=== PATIENT | male | born 1965 | race Caucasian/White ===

== ENCOUNTER 2018-12-19 02:04 | Emergency (ER) | payer BC, OTHER ==
[~2018-12-19] VITALS: Ht 167.6 cm; Wt 54.9 kg
[~2018-12-19 02:04] MED LIST: HYDR-3974 GT
[2018-12-19 03:35] VITALS: BP 139/74
[2018-12-19] MEDS ORDERED: KETOROLAC TROMETHAMINE INJ 60 MG/2 ML VIAL IM ONE ×2 (03:59→04:00)
[2018-12-19] MEDS ORDERED: DEXAMETHASONE SOD PHOSPHATE 10 MG/ML VIAL ONE (03:59)
[2018-12-19] MEDS ORDERED: DEXAMETHASONE SOD PHOSPHATE 4 MG/ML VIAL IM ONE (04:00)
== END 2018-12-19 04:11 | disposition home or self-care (01) ==
LOC: ER 02:04
DX: M54.42 Lumbago with sciatica, left side (principal); F17.200 Nicotine dependence, unspecified, uncomplicated
CPT/HCPCS: J1100; J1885

== ENCOUNTER 2021-07-07 14:07 | Emergency (ER) | payer OTHER ==
[~2021-07-07] VITALS: Ht 167.6 cm; Wt 57.6 kg
[2021-07-07 14:16] VITALS: BP 146/81
--- NOTE | 2021-07-07 14:20 | NUR ---
BIBSELF FOR SELF INFLICTED MULTIPLE LAC ON THE NECK, WRISTS & ABDOMEN WITH A "SPEAR". THE PATIENT IS ALERT AND ORIENTED X3. IN ROOM AIR AND DENIES SOB. RESPIRATION REGULAR AND UNLABORED. ATTACHED TO THE MONITOR. SAFETY CHECK DONE, SAFETY MEASURES TAKEN. SITTER AT THE BEDSIDE. WILL CONTINUE TO MONITOR THE PATIENT.
--- NOTE | 2021-07-07 14:23 | NUR ---
CALLED [facility] FOR TRAUMA TRANSFER RETRIAGE. WAITING FOR CALL BACK FROM PRISCILLA CHARGE NURSE FOR TRAUMA DR. MONROY
--- NOTE | 2021-07-07 14:25 | NUR ---
RECEIVED A CALL FROM PRISCILLA CHARGE NURSE AT [facility] EMERGENC[facility] ROOM. DR. NAIDU IS ACCEPTING TRAUMA SURGEON.
[2021-07-07] MEDS ORDERED: TDAP [DIPH/PERTUSSIS/TET] 0.5 ML VIAL IM ONE (14:30)
[2021-07-07] MEDS ORDERED: CEFAZOLIN 1 GM in IV D5W 50 ML IV ONE (14:30)
--- NOTE | 2021-07-07 14:30 | NUR ---
CALLED FOR RETRIAGE TO [facility].
--- NOTE | 2021-07-07 14:35 | NUR ---
THE PATIENT GOT PICKED UP VIA 911 AND FOR THAT REASON THE PATIENT DID NOT GET ORDERED ANCEF AND TDAP. 911 CECILIA MADE AWAR.
== END 2021-07-07 14:30 ==
LOC: ER 14:08
DX: S11.81XA Laceration without foreign body of other specified part of neck, initial encounter (principal); S61.512A Laceration without foreign body of left wrist, initial encounter; S31.135A Puncture wound of abdominal wall without foreign body, periumbilic region without penetration into peritoneal cavity, initial encounter; F17.200 Nicotine dependence, unspecified, uncomplicated; F32.9 Major depressive disorder, single episode, unspecified; X78.8XXA Intentional self-harm by other sharp object, initial encounter; Y93.89 Activity, other specified; Y92.89 Other specified places as the place of occurrence of the external cause; Y99.8 Other external cause status
CPT/HCPCS: 71045-TC; J0690; J7060

== ENCOUNTER 2023-02-25 16:36 | Emergency (ER) | payer OTHER ==
[~2023-02-25] VITALS: Ht 167.6 cm; Wt 53.1 kg
--- NOTE | 2023-02-25 16:36 | NUR ---
BIBRA FOR WEAKNESS AND N/V FOR THE PAST FEW HOURS. A/O X 3, ABLE TO MAKE NEEDS KNOWN, TOLERATING WELL ON ROOM AIR.
--- NOTE | 2023-02-25 17:15 | NUR ---
BLOOD SAMPLES OBTAINED
[2023-02-25] MEDS ORDERED: IV NS 0.9% 1,000 ML BAG IV ONE (17:30)
[2023-02-25 17:52] LABS: BASOPHILS # (AUTO) 0.1 K/uL (0.0-0.2); BASOPHILS % (AUTO) 0.8 % (0.0-2.0); EOSINOPHILS % (AUTO) 0.9 % (0.0-6.0); HEMATOCRIT 39 % (39-51); HEMOGLOBIN 12.4 g/dL (13.5-17.5); LYMPHOCYTES # (AUTO) 0.7 K/uL (0.8-4.8); LYMPHOCYTES % (AUTO) 10.9 % (20.0-44.0); MEAN CORPUSCULAR HGB CONC 32 g/dl (31.0-36.0); MEAN CORPUSCULAR VOLUME 73 fL (80-96); MONOCYTES # (AUTO) 0.3 K/uL (0.1-1.30); MONOCYTES % (AUTO) 4.6 % (2.0-12.0); NEUTROPHILS # (AUTO) 5.4 K/uL (1.8-8.9); NEUTROPHILS % (AUTO) 82.8 % (43.0-81.0); PLATELET COUNT (AUTO) 326 K/uL (150-450); RED BLOOD CELL COUNT(AUTO) 5.31 MIL/uL (4.5-6.0); WHITE BLOOD COUNT (AUTO) 6.5 K/uL (4.3-11.0)
[2023-02-25 17:58] LABS: CALCIUM, SERUM 8.7 mg/dL (8.5-10.1); CARBON DIOXIDE 26 mmol/L (21-32); CHLORIDE 99 mmol/L (98-107); CREATININE 0.7 mg/dL (0.6-1.3); GLUCOSE 142 mg/dL (74-106); POTASSIUM 4.1 mmol/L (3.5-5.1); SODIUM SERUM 140 mmol/L (136-145); UREA NITROGEN, BLOOD 14 mg/dL (7-18)
[2023-02-25 18:05] LABS: ALANINE AMINOTRANSFERASE 82 U/L (12-78); ALBUMIN 3.8 g/dL (3.4-5.0); ALCOHOL, BLOOD 196 mg/dL (0-0); ALKALINE PHOSPHATASE 94 U/L (46-116); ASPARTATE AMINOTRANSFERASE 72 U/L (15-37); BILIRUBIN,DIRECT 0.2 mg/dL (0.0-0.2); BILIRUBIN,TOTAL 0.7 mg/dL (0.2-1.0); TOTAL PROTEIN, SERUM 7.4 g/dL (6.4-8.2)
[2023-02-25 18:13] LABS: SERUM AMMONIA 21 umol/L (11-32)
[2023-02-25 18:17] LABS: THYROID STIMULATING HORMONE 0.435 uIU/mL (0.358-3.74)
[2023-02-25] MEDS ORDERED: THIAMINE HCL 100 MG TABLET PO ONE (19:00)
[2023-02-25] MEDS ORDERED: FOLIC ACID 1 MG TABLET PO ONE (19:00)
[2023-02-25] MEDS ORDERED: FOLIC ACID 1 MG TABLET ONE (19:03)
[2023-02-25] MEDS ORDERED: THIAMINE HCL 100 MG TABLET ONE (19:03)
[2023-02-25 19:07] VITALS: BP 126/87
--- NOTE | 2023-02-25 19:07 | NUR ---
IV removed. Catheter intact and site benign. Pressure and 4x4 applied to site. No bleeding noted.Patient discharged to home in stable condition. Written and verbal after care instructions given. Patient verbalizes understanding of instruction. The patient got picked up by a family member.
[2023-02-25 19:12] LABS: BAND % (MANUAL) 1 % (0.0-5.0); EOSINOPHILS % (MANUAL) 2 % (0-4); LYMPHOCYTES % (MANUAL) 23 % (16-48); MONOCYTES % (MANUAL) 6 % (0-11.0); NEUTROPHILS % (MANUAL) 68 (42-76)
== END 2023-02-25 19:08 | disposition home or self-care (01) ==
LOC: ER 17:09
DX: K29.20 Alcoholic gastritis without bleeding (principal); F10.129 Alcohol abuse with intoxication, unspecified; F17.200 Nicotine dependence, unspecified, uncomplicated; Y90.6 Blood alcohol level of 120-199 mg/100 ml
CPT/HCPCS: 99285; 96360; 93005; 71045; 82140; 85025; 80048; 80076; 83735; 85007; 36415; 84443; 84484; 80320; J7030; G0480

== ENCOUNTER 2023-08-21 11:32 | Emergency (ER) | payer OTHER ==
[~2023-08-21] VITALS: Ht 167.6 cm; Wt 57.6 kg
[2023-08-21 11:38] VITALS: BP 134/72; TEMP 98.4
[2023-08-21] MEDS ORDERED: GENT5DRO23 LEFTEYE (11:52)
[2023-08-21 12:12] VITALS: O2SAT 100
== END 2023-08-21 12:14 | disposition home or self-care (01) ==
LOC: ER 11:35
DX: H57.12 Ocular pain, left eye (principal); F17.200 Nicotine dependence, unspecified, uncomplicated

== ENCOUNTER 2025-05-26 08:22 | Emergency (ER) | payer OTHER ==
[~2025-05-26] VITALS: Ht 167.6 cm; Wt 54.4 kg
[~2025-05-26 08:22] MED LIST changes: +GENT5DRO23 LEFTEYE
[2025-05-26] MEDS ORDERED: MORPHINE SULFATE INJ 2 MG/ML DISP.SYRIN ONE ×2 (08:58→14:15)
[2025-05-26] MEDS: MORPHINE SULFATE INJ 2 MG/ML DISP.SYRIN IV ONE ×2 (09:01→14:18)
[2025-05-26 09:09] LABS: PLATELET COUNT (AUTO) 612 K/uL (150-450); RED BLOOD CELL COUNT(AUTO) 5.94 MIL/uL (4.5-6.0); RED CELL DISTRIBUTION WIDTH 15.3 % (11.5-15.0); WHITE BLOOD COUNT (AUTO) 12.7 K/uL (4.3-11.0)
[2025-05-26 09:21] LABS: ASPARTATE AMINOTRANSFERASE 20 U/L (15-37); CALCIUM, SERUM 9.8 mg/dL (8.5-10.1); CREATININE 0.7 mg/dL (0.6-1.3); SODIUM SERUM 136 mmol/L (136-145); TOTAL PROTEIN, SERUM 8.8 g/dL (6.4-8.2); UREA NITROGEN, BLOOD 12 mg/dL (7-18)
[2025-05-26] MEDS ORDERED: IOHEXOL-300 100 ML VIAL IV ONE (09:33)
[2025-05-26] MEDS ORDERED: IV NS 0.9% 250 ML IV ONE (09:33)
[2025-05-26 10:02] VITALS: TEMP 97.8
[2025-05-26] MEDS ORDERED: dexaMETHasone SOD PHOSPHATE 1 ML ONE (10:05)
[2025-05-26] MEDS: dexaMETHasone SOD PHOSPHATE 10 MG/ML VIAL IV ONE (10:07)
[2025-05-26] MEDS: LEVETIRACETAM (500MG) 1,000 MG in IV NS 0.9% 90 ML IV SCH (10:15)
[2025-05-26 14:10] VITALS: BP 132/92; O2SAT 96
== END 2025-05-26 14:26 ==
LOC: ER 08:34
DX: G91.9 Hydrocephalus, unspecified (principal); R07.89 Other chest pain; R53.1 Weakness; R79.89 Other specified abnormal findings of blood chemistry; R91.8 Other nonspecific abnormal finding of lung field; F17.200 Nicotine dependence, unspecified, uncomplicated; R50.9 Fever, unspecified; R51.9 Headache, unspecified
CPT/HCPCS: 99291; 71260; 96365; 96375; 71045; 93005; 70450; 85025; 80048; 83690; 80076; 36415; 84484 ×2; 82962; 96376; J1100; J7030; J7050; A4223; J2270 ×2; J1953; Q9967